=== PATIENT | female | born 1960 | race Caucasian/White ===

== ENCOUNTER 2020-06-17 18:44 | Emergency (ER) | payer OTHER, SELFPAY ==
--- NOTE | ~2020-06-17 | XR_ITS ---
EXAMINATION: XR ankle RT min 3V EXAM DATE: 06/17/2020 19:13 INDICATION: Fall, pain. Swelling and bruising right ankle laterally. TECHNIQUE: Right ankle frontal, lateral and oblique projections obtained and reviewed. Comparison is made to prior examination from 09/01/2007. FINDINGS: The right ankle mortise appears intact. There is acute closed posttraumatic avulsion fra cture off the dorsal aspect of the anterior talar process, seen on the lateral projection. This findi ng has been indicated, marked on the examination for review, clinical correlation. There are 2 smalle r ossification suspicious for acute avulsion fracture seen laterally, talar and cuboid donor sites mo st likely. There is an ankle joint effusion. IMPRESSION: 1. Suspect avulsion fractures off the talus anteriorly, laterally, and cuboid laterally. Consider or thopedic consult. 2. Right ankle joint effusion. Reviewed, dictated and finalized at location A. IMPRESSION: 1. Suspect avulsion fractures off the talus anteriorly, laterally, and cuboid laterally. Consider orthopedic consult. 2. Right ankle joint effusion.
--- NOTE | 2020-06-17 18:47 | ED.GENADULT ---
HPI - General Adult General Chief complaint: Extremity Injury, Lower Stated complaint: right ankle-fell Time Seen by Provider: 06/17/20 18:47 Source: patient Mode of arrival: ambulatory Limitations: no limitations History of Present Illness HPI narrative: 59-year-old female patient presents to the [facility] with complaints of right ankle pain. Patient states that she was up on the third step of a ladder earlier this afternoon painting and states that she fell off the ladder. Denies hitting her head, denies loss of consciousness. Patient states she has had issues with this foot before and states that is what she calls a weak foot . Patient states she did take 3 ibuprofen prior to arrival. Patient states that she really has not been able to bear much weight on it and if she does step on it she has to be holding onto a wall or something else. Related Data Home Medications Medication Instructions Recorded Confirmed No Home Medications 06/17/20 06/17/20 Allergies Allergy/AdvReac Type Severity Reaction Status Date / Time No Known Allergies Allergy Verified 06/17/20 19:05 Review of Systems Review of Systems: Narrative: CONSTITUTIONAL: Denies fever, chills, or sweats. EYES: Denies visual changes, redness, or discharge. ENT: Denies rhinorrhea, congestion, sore throat, or otalgia. CARDIOVASCULAR: Denies chest pain, palpitations, or edema. RESPIRATORY: Denies cough or dyspnea. GASTROINTESTINAL: Denies abdominal pain, nausea, vomiting, or diarrhea. GENITOURINARY: Denies dysuria or hematuria. SKIN: Denies rash or itching. MUSCULOSKELETAL: Denies back pain, joint pain, or myalgia. Positive right ankle and foot pain NEUROLOGIC: Denies headache, numbness, or weakness. PSYCHIATRIC: Denies anxiety or depression. PMFSH Social History Social History Gender identity (if verbalized by the patient): Female Comments At the time of my signature I agree with nursing past medical history, surgical, social, and family history. There is no relevant family history pertinent to the presenting complaint. Exam Narrative: Exam Narrative: GENERAL: Well-appearing, well-nourished, and in no acute distress. HEAD: Normocephalic, atraumatic. EYES: PERRLA and EOMI. ENT: Nares clear, no rhinorrhea or epistaxis. Mucous membranes moist. NECK: Supple. No lymphadenopathy CHEST: Clear to auscultation. No respiratory distress. HEART: Regular rate and rhythm. No murmur heard. Normal peripheral pulses. ABDOMEN: Soft, nontender, nondistended, normal active bowel sounds. EXTREMITIES: Patient unable to bear weight and ambulate without right foot. There is swelling and ecchymosis noted to the lateral aspect of the right foot and ankle. There is some abrasions noted to the lateral side, 2 of them. Both measuring approximately 0.5 to 1 cm.. The R foot is without obvious asymmetry or deformity when compared to the L foot. No bony step-off, nontender to palpation over the toes, tenderness over the right midfoot, no tenderness noted to the hindfoot or sole. Tenderness noted to the lateral malleolus on palpation. Decreased plantar/dorsiflexion, inversion/eversion. Distal motor and neurovascular status are intact. Patient able to wiggle toes denies any numbness or tingling to the toes. SKIN: Warm, dry, no rash. NEURO: No focal deficits. Alert and oriented x3. Course Reevaluation(s) Reevaluation #1: Reevaluated patient after x-ray had resulted. Discussed with her that she does have a significant fracture to the right ankle. Discussed with her that I did call and consult with the Ortho surgeon and he would like to see her sometime tomorrow in his office. Discussed with patient that we will go ahead and put her in a temporary splint as well as give her some crutches and I would like for her to be nonweightbearing on the foot. Discussed with patient she can take Tylenol for pain but I would avoid ibuprofen at this t
[2020-06-17 19:00] VITALS: BP 141/81; PULSE 88; RESP 18; TEMP 36.8; O2SAT 99
== END 2020-06-17 19:40 | disposition home or self-care (01) ==
PROVIDERS: Emergency Provider Nurse Practitioner Family
DX: S82.891A Other fracture of right lower leg, initial encounter for closed fracture (principal); W11.XXXA Fall on and from ladder, initial encounter
CPT/HCPCS: 29515; 73610; 99214; G0463

== ENCOUNTER 2020-06-19 11:08 | Emergency (ER) | payer OTHER, SELFPAY ==
[2020-06-19 11:24] VITALS: BP 124/72; PULSE 84; RESP 16; TEMP 36.9; O2SAT 100
--- NOTE | 2020-06-19 11:51 | ED.LOWEXIN ---
HPI - Extremity Injury (Lower) General Chief Complaint: Extremity Injury, Lower Stated Complaint: right foot bleeding Time Seen by Provider: 06/19/20 11:40 Source: patient Mode of arrival: ambulatory Limitations: no limitations History of Present Illness HPI Narrative: Deisy Weiss is a 59 yo female with no prior medical history except for brain tumor that is been removed, who came to express care after fall from ladder she states she was here 2 days ago for right ankle avulsion fracture and has returned to express care because of serosanguineous drainage from her OCL. She will be going to see orthopedic surgery on Sunday; has been nonweightbearing, elevating foot. Related Data Home Medications Medication Instructions Recorded Confirmed No Home Medications 06/17/20 06/17/20 Allergies Allergy/AdvReac Type Severity Reaction Status Date / Time No Known Allergies Allergy Verified 06/17/20 19:05 Review of Systems Review of Systems: Narrative: CONSTITUTIONAL: Denies fever, chills, sweats. EYES: Denies visual changes, redness, discharge. ENT: Denies rhinorrhea, congestion, sore throat, otalgia. CARDIOVASCULAR: Denies chest pain, palpitations, edema. RESPIRATORY: Denies dyspnea, wheezing, cough GASTROINTESTINAL: Denies abdominal pain, nausea, vomiting, diarrhea. GENITOURINARY: Denies dysuria, hematuria, abnormal discharge SKIN: Denies rash or itching. NEUROLOGIC: Denies numbness, or focal weakness. PSYCHIATRIC: Denies anxiety or depression. Right lower extremity-redness through OCL PMFSH Past Medical History Medical History (Updated 06/19/20 @ 12:00 by Melina Mcbride CNP) Brain tumor (benign) Family History Family History (Updated 06/19/20 @ 11:56 by Melina Mcbride CNP) Other High cholesterol Hypertension Social History Social History (Updated 06/19/20 @ 11:56 by Melina Mcbride CNP) Smoking status: Never smoker Alcohol intake: current Gender identity (if verbalized by the patient): Female Comments At time of signature, I agree with nursing past medical, surgical, social and family history. There is no relevant family history pertinent to the presenting complaint. Exam Narrative: Exam Narrative: GENERAL: This is a well-nourished, well-developed patient, in mild distress. HEAD: normocephalic, atraumatic. EYES: Sclera clear/white. Vision is grossly intact. EARS: External ears normal, auditory canals clear and without drainage, TMs normal without perforation. Hearing grossly intact. NOSE: External nose normal without nasal discharge, nares without redness, no rhinorrhea. THROAT: Mucous membranes moist, posterior pharynx NECK: Neck supple, non-tender CARDIOVASCULAR: Regular rate and rhythm without murmurs, gallops, or rubs. RESPIRATORY: Clear to auscultation. Breath sounds equal bilaterally. No wheezes, rales, or rhonchi. GASTROINTESTINAL: Abdomen soft, non-tender, SKIN: warm, intact with no suspicious lesions or rash, good texture and turgor. Multiple areas of bruising on her arms and legs NEURO: awake, alert, and oriented to person, place and time. There were no obvious focal neurologic abnormalities. Steady gait EXTREMITIES: Right lower extremity OCL removed due to bleeding-abrasions examined redressed with neosporin and telfa and OCL reapplied BACK: Nontender without deformity Course Course Emergency Course: Abrasions redressed with Neosporin and Telfa dressing; blisters also covered with Telfa, resealed and replaced Vital Signs Vital signs: Vital Signs Temperature 98.4 F 06/19/20 11:24 Pulse Rate 84 06/19/20 11:24 Respiratory Rate 16 06/19/20 11:24 Blood Pressure 124/72 06/19/20 11:24 Pulse Oximetry 100 06/19/20 11:24 Temperature 98.4 F 06/19/20 11:24 Pulse Rate 84 06/19/20 11:24 Respiratory Rate 16 06/19/20 11:24 Blood Pressure 124/72 06/19/20 11:24 Pulse Oximetry 100 06/19/20 11:24 Procedures Orthopedic Splinting/Casting Injury #
== END 2020-06-19 12:02 | disposition home or self-care (01) ==
PROVIDERS: Emergency Provider Nurse Practitioner
DX: Z48.00 Encounter for change or removal of nonsurgical wound dressing (principal); S90.811A Abrasion, right foot, initial encounter; W11.XXXA Fall on and from ladder, initial encounter; S82.891A Other fracture of right lower leg, initial encounter for closed fracture; Z86.011 Personal history of benign neoplasm of the brain
CPT/HCPCS: 99212; G0463

== ENCOUNTER 2020-08-12 12:15 | Outpatient (RCR) | payer OTHER, SELFPAY ==
--- NOTE | 2020-08-12 13:29 | PTOPEVAL ---
PHYSICAL THERAPY EVALUATION AND PLAN OF CARE Thank you for referring Deisy Weiss to [facility][Note 3].? The patient is scheduled to be seen for therapy? 2x/week for 4 weeks. Please review, sign, date and return this plan of care CRYSTAL. I agree with and certify that the following plan of care is medically necessary. Referring Physician Date Attending Provider: Elfego Travis MD Evaluation Outpatient Past Medical History Neurological History Hx Other Neurological Disorders Yes: 04/2019 benign brain tumor Evaluation Information Diagnosis severe right ankle sprain with multiple avulsion fractures Onset June 15 2020 Subjective Information Was on a ladder painting and Query Text:As Reported By Patient/ the ladder buckled and she Family fell obtaining multiple avulsion fractures. She wore a cam boot for several weeks. She is wearing a compression brace to assist with swelling. There is significant swelling noted today. Used a wheelchair at home initially and was to be non-weight bearing for the first several weeks. Self Report Pain Assessment Right Ankle(s) Reported Pain Level 4 Pain Description Aching Pain Frequency Acute,Continuous Lowest Pain Intensity 3 Greatest Pain Intensity 8 Pain Score Pain Score 4: Self Report Lower Extremity Range of Motion Ankle/Foot Range of Motion Right Ankle Dorsiflextion With Knee Extension -11 Range of Motion - Active Ankle Plantarflexion Range of Motion - 50 Active Query Text: Ankle Eversion Range of Motion - Active 9 Ankle Inversion Range of Motion - Active 11 General Lower Extremity Strength Gross Lower Extremity Strength hip and knee WNL Ankle Strength Right Ankle Dorsiflexion Strength 4 Good Ankle Plantarflexion Strength 3+ Fair + Ankle Eversion Strength 4 Good Ankle Inversion Strength 4 Good Ankle Strength Comments bilateral heel raises: x10 Muscle Length Testing Left Hamstring Length -20 Query Text:(90 - 90 Position) Right Hamstring Length -25 Query Text:(90 - 90 Position) Gastrocnemius Length (R) Mild Tightness,(L) Mild Tightness Palpation reports very mild tenderness over skin of ankle - some sensitivity; severe stiffness of right ankle to anterior-
--- NOTE | 2020-09-08 13:51 | PCPTNOTE ---
Attempted to call patient to follow-up on care. Her voicemail box is full and cannot leave a message.
--- NOTE | 2020-09-08 13:52 | PCPTNOTE ---
PHYSICAL THERAPY DISCHARGE NOTE Attending Provider: Elfego Travis MD Patient:Deisy Weiss Date of :1960 Patient has not returned for any further treatments since 08/12/2020, therefore she will be discharged at this time. Attempted to call patient multiple times to set up further appointments and she was going to check with her insurance; however, we did not hear further from her. Patient?s initial visit was on 08/12/2020. Thank you for referring this patient to [facility]. Please review, sign, date and return this discharge summary CRYSTAL. I have been updated about the patient's current status and I agree with discharge from the above service at this time. Referring Physician Date
== END 2020-10-28 08:44 | disposition home or self-care (01) ==
LOC: ANHPT 12:15
PROVIDERS: Visit Provider Orthopaedic Surgery
DX: S93.401D Sprain of unspecified ligament of right ankle, subsequent encounter (principal)
CPT/HCPCS: 97161

== ENCOUNTER 2024-08-14 14:56 | Emergency (ER) | payer OTHER, SELFPAY ==
[2024-08-14 15:10] VITALS: BP 139/70; PULSE 77; RESP 19; TEMP 37; O2SAT 95
[2024-08-14] MEDS: LIDOCAINE HCL 1% LOCAL INJ 2 ML AMPUL 12 ML INFILTRATE (15:30)
--- NOTE | 2024-08-14 16:08 | ED.WOUNDLAC ---
HPI - Wound/Laceration General Chief Complaint: Wound/Laceration Stated Complaint: Right Hand Finger Laceration Time Seen by Provider: 08/14/24 15:16 Source: patient and RN notes reviewed Mode of arrival: ambulatory Limitations: no limitations History of Present Illness HPI narrative: Patient presents today with lacerations to her right 1st and 2nd finger that were sustained just prior to arrival on a metal fan blade. Patient's last tetanus was in 2018, but she declines to update today. Denies numbness or tingling. No [id number] treatment prior to arrival. Related Data Home Medications Medication Instructions Recorded Confirmed No Home Medications 08/14/24 08/14/24 Allergies Allergy/AdvReac Type Severity Reaction Status Date / Time No Known Allergies Allergy Verified 08/14/24 15:12 Review of Systems Review of Systems: CONSTITUTIONAL: Denies body aches, fever, chills, or sweats. EYES: Denies visual changes, redness, or discharge. ENT: Denies rhinorrhea, congestion, sore throat, or otalgia. CARDIOVASCULAR: Denies chest pain, palpitations, or edema. RESPIRATORY: Denies cough or dyspnea. GASTROINTESTINAL: Denies abdominal pain, nausea, vomiting, or diarrhea. GENITOURINARY: Denies dysuria or hematuria. SKIN: Denies rash, itching, or wounds.+ finger lacerations MUSCULOSKELETAL: Denies back pain, joint pain, or myalgia. NEUROLOGIC: Denies headache, numbness, tingling, or weakness. PSYCH: Denies depression or anxiety. PMFSH Past Medical History Medical History Brain tumor (benign) Family History Family History Other High cholesterol Hypertension Social History Social History Smoking status: Never smoker Alcohol intake: current Gender identity (if verbalized by the patient): Female Comments At time of signature, I have reviewed and agree with nursing past medical, surgical, social and family history unless otherwise noted. Please see nursing chart for further information. There is no relevant family history pertinent to the presenting complaint Exam Narrative: GENERAL: Well-appearing, well-nourished, and in no acute distress. HEAD: Normocephalic, atraumatic. EYES: EOMI. No redness or drainage. Conjunctivae normal. ENT: Mucous membranes pink and moist. NECK: Normal AROM. CHEST: No respiratory distress. EXTREMITIES: Right thumb: 1.5 cm full-thickness linear laceration at the tip of the finger. Fingernail not affected. Distal sensation intact. Capillary refill normal. Full AROM against resistance. Right 2nd finger. This partial thickness flap laceration to the lateral PIP. Distal sensation intact capillary refill normal. Full range of motion against resistance. Laceration measures approximately 2 cm. SKIN: Warm, dry, no rash. Capillary refill normal. Normal skin turgor. NEURO: No focal deficits. Alert and oriented x3. Gait steady. PSYCH: Normal affect. No signs of depression or anxiety. Course Course Level of Care: Express Care Visit Vital Signs Vital signs: Vital Signs Temperature 98.6 F 08/14/24 15:10 Pulse Rate 77 08/14/24 15:10 Respiratory Rate 19 08/14/24 15:10 Blood Pressure 139/70 08/14/24 15:10 Pulse Oximetry 95 08/14/24 15:10 Oxygen Delivery Room Air 08/14/24 15:10 Temperature 98.6 F 08/14/24 15:10 Pulse Rate 77 08/14/24 15:10 Respiratory Rate 19 08/14/24 15:10 Blood Pressure 139/70 08/14/24 15:10 Pulse Oximetry 95 08/14/24 15:10 Oxygen Delivery Room Air 08/14/24 15:10 Reviewed Procedures Laceration Laceration 1: Date: 08/14/24 Time: 16:08 Site: hand (Right thumb) Size (cm): 1.5 Description: linear Depth: simple, single layer Local Anesthetic: none (Digital block) ===
== END 2024-08-14 16:30 | disposition home or self-care (01) ==
PROVIDERS: Emergency Provider Nurse Practitioner; PCP Family Medicine
DX: S61.011A Laceration without foreign body of right thumb without damage to nail, initial encounter (principal); S61.210A Laceration without foreign body of right index finger without damage to nail, initial encounter; W45.8XXA Other foreign body or object entering through skin, initial encounter; Z23 Encounter for immunization
CPT/HCPCS: 12002; 90471; 99212; G0463; J2003

== ENCOUNTER 2024-08-27 13:29 | Emergency (ER) | payer OTHER, SELFPAY ==
--- NOTE | 2024-08-27 13:38 | ED.WOUNDLAC ---
HPI - Wound/Laceration General Chief Complaint: Wound/Laceration Stated Complaint: Stitches Removal Time Seen by Provider: 08/27/24 13:40 Source: patient, RN notes reviewed and old records reviewed Mode of arrival: ambulatory Limitations: no limitations History of Present Illness HPI narrative: Patient presents today with request for suture removal. She has sutures to the right thumb and the right index finger. Sutures were placed at this facility 08/14/2024. Patient admits that she know she should have gotten them removed sooner, but was out of town and did not make it a priority. She does report that both suture sites are mildly tender. Both have become a little bit red. She denies any active drainage. She denies any fever, chills, sweats. She does report that some sutures have come out on their own Related Data Allergies Allergy/AdvReac Type Severity Reaction Status Date / Time No Known Allergies Allergy Verified 08/27/24 13:33 Review of Systems Review of Systems: All systems reviewed & are unremarkable except as noted in HPI and below Constitutional: Constitutional: Reports no additional constitutional complaints ENT: Reports system reviewed and no additional complaints, except as documented Cardiovascular: Cardiovascular: Reports no additional cardiovascular complaints Respiratory: Respiratory: Reports no additional respiratory complaints Gastrointestinal: Gastrointestinal: Reports no additional gastrointestinal complaints Integumentary/Breasts: Skin/Breast: Reports system reviewed and no additional complaints, except as docu and Reports as per HPI [facility] Past Medical History Medical History Brain tumor (benign) Family History Family History Other High cholesterol Hypertension Social History Social History Smoking status: Never smoker Alcohol intake: current Gender identity (if verbalized by the patient): Female Comments At the time of my signature, I reviewed and agree with the nursing past medical, surgical, social, and family history. There is no relevant family history pertinent to the patient complaint. Exam Const: General: cooperative, no acute distress, alert and awake Orientation/consciousness: oriented to person, oriented to place and oriented to time HENMT: Head: normal to inspection Resp: Effort & Inspection: normal respiratory effort and able to speak in complete sentences Auscultation: clear to auscultation bilaterally, no crackles, no rales, no rhonchi and no wheezes Cardio: Palpation: normal PMI Rate: regular rate Rhythm: regular rhythm Heart sounds: S1 normal heart sound present and S2 normal heart sound present Skin: Other: Healed wound with signs of infection and sutures in place to right thumb and right index finger. Both sites are red,warm, and tender to the touch. No active drainage to either site Neuro: General: oriented to person, oriented to place and oriented to time Cranial nerves: Yes CN's II-XII intact bilaterally Psych: Appearance: grossly normal Thought process: Normal thought process present Insight: Good insight present (Psych) Judgement: Good judgement present (Psych) Course Course Level of Care: Express Care Visit Vital Signs Vital signs: Vital Signs Temperature 98.8 F 08/27/24 13:39 Pulse Rate 65 08/27/24 13:39 Respiratory Rate 20 08/27/24 13:39 Blood Pressure 138/77 08/27/24 13:39 Pulse Oximetry 95 08/27/24 13:39 Oxygen Delivery Room Air 08/27/24 13:39 Temperature 98.8 F 08/27/24 13:39 Pulse Rate 65 08/27/24 13:39 Respiratory Rate 20 08/27/24 13:39 Blood Pressure 138/77 08/27/24 13:39 Pulse Oximetry 95 08/27/24 13:39 Oxygen Delivery Room Air 08/27/24 13:39 Reviewed Procedures Other Procedure Procedure 1:
[2024-08-27 13:39] VITALS: BP 138/77; PULSE 65; RESP 20; TEMP 37.1; O2SAT 95
== END 2024-08-27 14:00 | disposition home or self-care (01) ==
PROVIDERS: Emergency Provider Nurse Practitioner Family; PCP Family Medicine
DX: S61.011D Laceration without foreign body of right thumb without damage to nail, subsequent encounter (principal); S61.210D Laceration without foreign body of right index finger without damage to nail, subsequent encounter; X58.XXXD Exposure to other specified factors, subsequent encounter; Z86.011 Personal history of benign neoplasm of the brain
CPT/HCPCS: 99213; G0463